=== PATIENT | female | born 1990 | race Caucasian/White ===

== ENCOUNTER 2017-02-22 18:40 | Outpatient (CLI) | payer BC ==
[~2017-02-22] VITALS: Ht 157.5 cm; Wt 83.0 kg
[2017-02-22] MEDS ORDERED: PRENTAB26 PO (18:50)
[2017-02-22 18:52] VITALS: Ht 157.5 cm; Wt 83.0 kg
[2017-02-22 19:39] LABS: INR 0.9 (0.9-1.1); PROTHROMBIN TIME (PATIENT) 9.4 SECONDS (9.0-12.0)
[2017-02-22 19:43] LABS: HEMATOCRIT 37.8 % (37-47); MEAN CELL VOLUME 87.7 fL (80-100); MEAN CORPUSCULAR HGB CONC 33.1 g/dl (32-36); MEAN PLATELET VOLUME 11.7 fL (7.4-10.4); PLATELET COUNT 109 K/uL (130-400); RED BLOOD COUNT 4.31 M/uL (4.2-5.4); WHITE BLOOD COUNT 10.34 K/uL (4.8-10.8)
[2017-02-22 19:47] LABS: ALB/GLOB RATIO 0.7 (0.9-2); ALKALINE PHOSPHATASE 111 U/L (45-117); ALT/SGPT 25 U/L (12-78); AST/SGOT 25 U/L (15-37); BLOOD UREA NITROGEN 5 mg/dl (7-18); BUN/CREATININE RATIO 9.9 (10-20); CALCIUM 8.5 mg/dl (8.5-10.1); CARBON DIOXIDE 25 mmol/L (21-32); CHLORIDE 108 mmol/L (98-107); CREATININE 0.48 mg/dl (0.60-1.20); GLUCOSE 74 mg/dl (70-99); POTASSIUM 3.6 mmol/L (3.5-5.1); SODIUM 141 mmol/L (136-145)
[2017-02-22 20:01] LABS: URINE APPEARANCE CLEAR (CLEAR); URINE BILIRUBIN NEG (NEG); URINE COLOR YELLOW; URINE EPITHELIAL CELL AUTO >30 /lpf (0-5); URINE NITRITE NEG (NEG); URINE PH 7.5 (4.5-7.5); URINE SPECIFIC GRAVITY 1.011 (1.000-1.030); UROBILINOGEN NEG (NEG)
[2017-02-22 20:02] LABS: MANUAL MICROSCOPIC REQUIRED? NO; REVIEW REQ? YES
--- NOTE | 2017-02-25 14:16 | EDITING REQUIRED CODING QUERY ---
DIAGNOSIS NEEDED To promote full compliance with coding requirements relating to patient care, physician participation is requested in all cases of pad machine offbearer uncertainty. Please assist us with the question(s) below: Coding Question: The patient received care in labor and delivery on 02/22/17 as noted within the record. Please document the diagnosis that is being addressed by the medication/treatment. Provider Response: DIAGNOSIS: LOWER EXTREMITY EDEMA OF Thank you for your assistance, Isabela Jacobson - Human Capital Analyst
[2017-08-07] MEDS ORDERED: BCPILLS PO (15:08)
[2017-08-18] MEDS ORDERED: OXYC-57 PO (11:16)
== END 2017-02-22 20:40 | disposition home or self-care (01) ==
LOC: C.OPB 18:40 → C.LD 18:41 → C.OPB 20:40
PROVIDERS: ATTEND Obstetrics & Gynecology
DX: O26.893 Other specified pregnancy related conditions, third trimester (principal); R60.9 Edema, unspecified; Z3A.35 35 weeks gestation of pregnancy

== ENCOUNTER 2017-03-25 00:27 | Inpatient (IN) | payer BC ==
[~2017-03-25] VITALS: Ht 157.5 cm; Wt 92.0 kg
[~2017-03-25 00:27] MED LIST: PRENTAB26 PO
[2017-04-02] MEDS ORDERED: LACTATED RINGER'S 1000ML 1,000 ML IV PRN (08:08)
[2017-04-02] MEDS ORDERED: BUTORPHANOL TARTRATE 1 MG/ML VIAL IV PRN (08:15)
[2017-04-02] MEDS ORDERED: DINOPROSTONE 10 MG INSERT PV ONE (08:15)
--- NOTE | 2017-04-02 08:39 | HISTORY & PHYSICAL EXAMINATION ---
DATE OF ADMISSION: 04/02/2017 CHIEF COMPLAINT: Scheduled induction of labor for post dates. HISTORY OF PRESENT ILLNESS: The patient is a 26-year-old G1, P0 at 41 weeks and 1 day of gestation who is presenting today for scheduled induction of labor for post dates. She has no complaints, no contractions, leakage of fluid, or vaginal bleeding. She reports good movements. She denies headaches, change in her vision, nausea, vomiting, epigastric or right upper quadrant pain. Her has been uncomplicated except gestational thrombocytopenia. PAST MEDICAL HISTORY: No medical problems. PAST SURGICAL HISTORY: None. MEDICATIONS: vitamins. ALLERGIES: PENICILLIN CAUSES RASH. LATEX ALLERGIC CONTACT DERMATITIS. SOCIAL HISTORY: The patient denies smoking, alcohol or drug use. GYNECOLOGIC HISTORY: The patient denies any history of STDs including Chlamydia, gonorrhea, herpes. This is her first . LABS: Her blood type is O positive, antibody screen negative, rubella positive, RPR nonreactive, hepatitis B surface antigen negative, HIV negative, chlamydia and gonorrhea cultures were negative. Her H\T\H was 12/36, platelets 130,000. Urine culture was negative. One hour Glucola was 93 mg per deciliter. Repeat H\T\H was 12/36, platelets 119. GBS culture was negative on 02/24/2017 and repeat platelets were 119 on 03/12/2017. PHYSICAL EXAMINATION: GENERAL: The patient is alert, oriented x3, not in acute distress. VITAL SIGNS: Blood pressure is 135/91, temperature 98.6 fahrenheit, pulse 93, respirations 20. CARDIOVASCULAR SYSTEM: S1, S2, RRR. LUNGS: Clear to auscultation bilaterally. ABDOMEN: Soft, gravid, David 7-1/2 to 8 pounds. EXTREMITIES: Nontender, 1+ pretibial edema. PELVIC EXAMINATION: Her cervix is 1-2 cm dilated, 30% effaced, -3, vertex. heart rate 140s, category 1. [place] mild contractions every 7-8 minutes. ASSESSMENT AND PLAN: The patient is a 26-year-old G1, P0 at 41 weeks and 1 day gestation presenting for scheduled induction of labor for post dates. No medical problems. GBS negative, blood pressure is slightly elevated with 1+ proteinuria, no signs of severe preeclampsia. Plan is admit, monitor, start IV fluids, cervical ripening with Cervidil and blood work for liver enzymes, platelets, urine protein/ creatinine ratio The patient understands that inductions may take a day or two All questions were answered. MTDD
[2017-04-02 09:24] LABS: HEMATOCRIT 40.7 % (37-47); MEAN CELL VOLUME 88.5 fL (80-100); MEAN CORPUSCULAR HEMOGLOBIN 28.3 pg (25-34); MEAN CORPUSCULAR HGB CONC 31.9 g/dl (32-36); WHITE BLOOD COUNT 10.45 K/uL (4.8-10.8)
[2017-04-02 09:26] LABS: BLOOD UREA NITROGEN 9 mg/dl (7-18); BUN/CREATININE RATIO 13.8 (10-20); CALCIUM 8.4 mg/dl (8.5-10.1); CARBON DIOXIDE 23 mmol/L (21-32); CHLORIDE 108 mmol/L (98-107); CREATININE 0.65 mg/dl (0.60-1.20); GLUCOSE 83 mg/dl (70-99); POTASSIUM 4.1 mmol/L (3.5-5.1); SODIUM 140 mmol/L (136-145)
[2017-04-02 09:29] LABS: ALB/GLOB RATIO 0.7 (0.9-2); ALKALINE PHOSPHATASE 151 U/L (45-117); ALT/SGPT 19 U/L (12-78); AST/SGOT 17 U/L (15-37)
[2017-04-02 09:53] LABS: MEAN PLATELET VOLUME 12.7 fL (7.4-10.4); PLATELET COUNT 106 K/uL (130-400)
[2017-04-02 09:54] LABS: PLT ESTIMATE DECREASED
[2017-04-02 11:16] VITALS: Ht 157.5 cm; Wt 92.0 kg
[2017-04-02 11:33] LABS: URINE PROTIEN/CREAT RATIO 0.2 (0-0.2); URINE TOTAL PROTEIN 20.6 mg/dl (0-11.9)
[2017-04-02] MEDS: LACTATED RINGER'S 1000ML 1,000 ML IV SCH ×2 (13:28→19:57)
[2017-04-02] MEDS ORDERED: LACTATED RINGER'S 1000ML 500 ML IV PRN (22:27)
[2017-04-02] MEDS ORDERED: OXYTOCIN 30 UNITS/500ML NSS IV PRN (22:30)
[2017-04-02] MEDS ORDERED: FENTANYL 2MCG/ML ROPIV 1.25MG/ML 100ML BAG EPI ONE (23:16)
[2017-04-02] MEDS ORDERED: EpHEDrine SULFATE INJ 50 MG/ML AMP ONE (23:16)
[2017-04-02] MEDS ORDERED: BUPIVACAINE 0.25% 30 ML VIAL ONE (23:16)
[2017-04-02] MEDS ORDERED: FENTANYL CITRATE INJ 50 MCG/1 ML 2 ML VIAL ONE (23:16)
[2017-04-02 23:39] LABS: PLATELET COUNT 107 K/uL (130-400)
[2017-04-03] MEDS ORDERED: NALOXONE HCL INJ 1 MG in SODIUM CHLORIDE 0.9% 1000ML 1,000 ML IV PRN (00:37)
[2017-04-03] MEDS ORDERED: LACTATED RINGER'S 1000ML 500 ML IV PRN (00:37)
[2017-04-03] MEDS: LACTATED RINGER'S 1000ML 1,000 ML IV SCH (00:37)
[2017-04-03] MEDS ORDERED: NALOXONE HCL INJ 0.4 MG/1 ML VIAL/CARP IV PRN (00:45)
[2017-04-03] MEDS ORDERED: EpHEDrine SULFATE INJ 50 MG/ML AMP IV PRN (00:45)
[2017-04-03] MEDS ORDERED: FENTANYL 2MCG/ML ROPIV 1.25MG/ML 100ML BAG EPI PRN (00:45)
[2017-04-03] MEDS ORDERED: NALBUPHINE HCL INJ 10 MG/ML AMP IV PRN (00:45)
[2017-04-03] MEDS ORDERED: DiphenhydrAMINE HCL 50 MG/ML VIAL IV PRN (00:45)
[2017-04-03] MEDS ORDERED: ONDANSETRON INJ 2 MG/ML 2 ML VIAL IV PRN (00:45)
[2017-04-03] MEDS ORDERED: LACTATED RINGER'S 1000ML 1,000 ML IV SCH (06:09)
[2017-04-03] MEDS ORDERED: SUPERCREAM 0.870 % 15GM JAR EXT PRN (06:15)
[2017-04-03] MEDS ORDERED: HYDROCORTISONE ACETATE 25 MG SUPP PR PRN (06:15)
[2017-04-03] MEDS ORDERED: MEASLES, MUMPS & RUBELLA VIRUS VIAL SQ. ONE (06:15)
[2017-04-03] MEDS ORDERED: ACETAMINOPHEN 325 MG TAB PO PRN (06:15)
[2017-04-03] MEDS ORDERED: BENZOCAINE 20% AER SPR 82.5 GM CAN EXT PRN (06:15)
[2017-04-03] MEDS ORDERED: OXYCODONE/ACETAMINOPHEN 5-325 TAB PO PRN (06:15)
[2017-04-03] MEDS ORDERED: LANOLIN OINT EXT PRN ×2 (06:15)
[2017-04-03] MEDS ORDERED: OXYTOCIN 30 UNITS/500ML NSS IV PRN (06:15)
[2017-04-03] MEDS ORDERED: DIPHTHERIA/TETANUS/PERTUSSIS 0.5 ML SYR/VIAL IM. ONE (06:15)
--- NOTE | 2017-04-03 08:02 | Anesthesia Procedure Note ---
Anesthesia Epidural Removal Nt Date & Time Apr 03, 2017 at 08:01 Vital Signs Pain Intensity: 0.0 Notes Mental Status: alert / awake / arousable, participated in evaluation Nausea / Vomiting: adequately controlled Pain: adequately controlled Airway Patency, RR, SpO2: stable & adequate BP & HR: stable & adequate Hydration State: stable & adequate Neuraxial Anesthesia: was administered Anesthetic Complications: no major complications apparent, pt satisfied with anesthetic care Epidural: removed without complications, with tip intact
[2017-04-03] MEDS: DOCUSATE SODIUM 100 MG CAP PO SCH ×2 (08:09→19:44)
[2017-04-03] MEDS: PRENATAL VITAMIN TAB PO SCH (08:09)
[2017-04-03] MEDS: FERROUS SULFATE 325 MG TAB PO SCH (08:09)
--- NOTE | 2017-04-03 08:17 | DELIVERY SUMMARY ---
DATE OF OPERATION: 04/03/2017 DATE OF DELIVERY: 04/03/2017. TIME OF DELIVERY OF BABY: 0538 a.m. TIME OF DELIVERY OF PLACENTA: 0553 a.m. DETAILS OF DELIVERY: The patient was found to be fully dilated and desired to push. She pushed for about half an hour and delivered the head without difficulty. Shoulders were delivered with minimal traction. The baby was handed off to the mother where mouth and nose were suctioned and cord was clamped x2 and cut at 1 minute delay. It was 3-vessel cord. Cord blood was obtained. Placenta and vagina were checked for lacerations. There was a second degree left lower vaginal laceration and there was another second degree right lower vaginal laceration. They were repaired with 2-0 Vicryl in running locked fashion. Excellent hemostasis was achieved. The rest of the vagina and perineum were intact. Rectal exam was done and confirmed a good sphincter tone. Gloves were changed and placenta was found to be in the vagina and delivered spontaneously intact and complete. Uterus was explored and found to be empty. Lower segment was cleared of all clots and debris. Fundus was form. EBL was 300. Mom and baby tolerated the procedure well. Sponge, lap and instrument counts were correct x2. The baby was a viable female , Apgars 8/9, weight is 3141 gr. No complications happened and I was present during the whole procedure. I attest to the content of the Intraoperative Record and any orders documented therein. Any exceptions are noted below. MTDD
[2017-04-03] MEDS: IBUPROFEN 600 MG TAB PO PRN ×3 (11:38→21:12)
[2017-04-03 12:15] VITALS: BP 141/86; PULSE 90; TEMP 36.9; O2SAT 97
[2017-04-03 16:30] VITALS: BP 143/94; PULSE 90; TEMP 36.6; O2SAT 98
[2017-04-03 19:45] VITALS: BP 140/89; PULSE 92; TEMP 36.5; O2SAT 99
[2017-04-03 23:30] VITALS: BP 131/90; PULSE 93; TEMP 36.7; O2SAT 98
[2017-04-04] MEDS: IBUPROFEN 600 MG TAB PO PRN ×4 (01:38→19:32)
[2017-04-04 03:15] VITALS: BP 130/81; PULSE 90; TEMP 36.6; O2SAT 99
[2017-04-04 06:23] LABS: HEMATOCRIT 35.4 % (37-47)
--- NOTE | 2017-04-04 07:44 | OB/GYN Progress Note ---
RN ORTHOPEDIC Progress Note Date of Service Apr 04, 2017. Subjective conversation w/ patient, physical exam Ambulation: ambulating normally Voiding: no voiding problems Passing Gas: Yes Diet Tolerance: Regular Diet Lochia: Small Feeding Type: Bottle Feeding Objective Vital Signs Date Time Temp Pulse Resp B/P (MAP) Pulse Ox O2 Delivery O2 Flow Rate FiO2 04/04/17 03:15 36.6 90 18 130/81 (97) 99 Room Air 04/03/17 23:30 36.7 93 20 131/90 (104) 98 Room Air 04/03/17 23:30 98 Room Air 04/03/17 19:45 36.5 92 20 140/89 (106) 99 04/03/17 16:30 98 Room Air 04/03/17 16:30 36.6 90 18 143/94 (110) 98 Room Air 04/03/17 12:15 36.9 90 16 141/86 (104) 97 Room Air 04/03/17 09:35 Room Air Physical Exam General Appearance: WELL-APPEARING, NO APPARENT DISTRESS Abdomen: non tender, soft Fundus: Firm Extremities: non-tender, normal inspection, no pedal edema, no calf tenderness Laboratory Results Last 24 Hours Test 04/04/17 05:56 Hemoglobin 10.9 g/dL Hematocrit 35.4 % Assessment and Plan Post- Day Number: 1 Continue Routine Care: tent d/c in AM
[2017-04-04 08:07] VITALS: BP 116/79; PULSE 86; TEMP 36.4; O2SAT 100
[2017-04-04] MEDS: FERROUS SULFATE 325 MG TAB PO SCH (08:10)
[2017-04-04] MEDS: DOCUSATE SODIUM 100 MG CAP PO SCH ×2 (08:10→19:31)
[2017-04-04] MEDS: PRENATAL VITAMIN TAB PO SCH (08:10)
[2017-04-04 09:12] VITALS: O2SAT 100
[2017-04-04 15:00] VITALS: BP 145/89; PULSE 97; TEMP 36.9
[2017-04-04] MEDS ORDERED: BISACODYL 5 MG TABEC PO SCH (20:00)
[2017-04-04 23:00] VITALS: BP 128/84; PULSE 83; TEMP 36.7
[2017-04-05] MEDS: IBUPROFEN 600 MG TAB PO PRN ×2 (02:16→08:19)
[2017-04-05 06:49] LABS: HEMATOCRIT 34.9 % (37-47); MEAN CORPUSCULAR HEMOGLOBIN 29.6 pg (25-34); MEAN CORPUSCULAR HGB CONC 33.2 g/dl (32-36); MEAN PLATELET VOLUME 11.3 fL (7.4-10.4); PLATELET COUNT 95 K/uL (130-400); RED BLOOD COUNT 3.92 M/uL (4.2-5.4); WHITE BLOOD COUNT 13.48 K/uL (4.8-10.8)
[2017-04-05] MEDS ORDERED: BISACODYL 10 MG SUPP PR PRN (07:00)
[2017-04-05 07:45] VITALS: BP 124/81; PULSE 88; TEMP 36.8
[2017-04-05] MEDS: FERROUS SULFATE 325 MG TAB PO SCH (08:16)
[2017-04-05] MEDS: PRENATAL VITAMIN TAB PO SCH (08:16)
[2017-04-05] MEDS: DOCUSATE SODIUM 100 MG CAP PO SCH (08:16)
[2017-04-05] MEDS ORDERED: PRENTAB26 PO (08:46)
--- NOTE | 2017-04-05 08:46 | OB/GYN Progress Note ---
RECEIVING BARN CUSTODIAN Progress Note Date of Service: Apr 05, 2017. Patient is seen and examined. She feels well, no complaints. Ambulating without dizziness Voiding without difficulty Tolerating regular diet with out N&V Bleeding is minimal No fever/ chills/ CP/ SOB/ N&V/ Leg pain Bottle feeding without problems Date Time Temp Pulse Resp B/P (MAP) Pulse Ox O2 Delivery O2 Flow Rate FiO2 04/04/17 23:00 36.7 83 18 128/84 (99) Room Air 04/04/17 23:00 Room Air 04/04/17 15:00 36.9 97 18 145/89 (107) Room Air 04/04/17 15:00 Room Air 04/04/17 09:12 100 Room Air Last 24 Hours Test 04/05/17 06:05 White Blood Count 13.48 K/uL Red Blood Count 3.92 M/uL Hemoglobin 11.6 g/dL Hematocrit 34.9 % Mean Corpuscular Volume 89.0 fL Mean Corpuscular Hemoglobin 29.6 pg Mean Corpuscular Hemoglobin Concent 33.2 g/dl RDW Standard Deviation 50.8 fL RDW Coefficient of Variation 15.7 % Platelet Count 95 K/uL Mean Platelet Volume 11.3 fL PE: General: Alert, orientedx3, NAD Abd: soft, NT, fundus firm, below Umbilicus Perineum intact, Lochia rubra minimal Ext; NT, no edema AP: 26 yo s/p , ppd# 2 VSS Afebrile doing well Continue routine care All questions were answered Instructions were given when to call D/C home , f/u in office
--- NOTE | 2017-04-05 08:47 | Discharge Instructions ---
Discharge Instructions Date of Service Apr 05, 2017. Admission Reason for Admission: Induction Discharge Discharge Diagnosis / Problem: Discharge Goals Goal(s): Routine recovery after delivery Medications Continue Dispensed Medications: lansinoh Activity Recommendations Activity Limitations: as noted below Lifting Limitations: gradually increase as tolerated Exercise/Sports Limitations: until after follow-up appointment May Resume Sexual Activity: after follow-up appointment Driving or Machine Use: ACTIVITY RECOMMENDATIONS: * Gradual return to full activity over the next 2-3 weeks. * No lifting - nothing heavier than baby over the next 2-3 weeks. * Do not engage in vigorous exercise, sexual activity or sports until cleared by your physician. * Do not drive or operate any motorized equipment until cleared by your physician. * You may shower/bathe daily. BREAST CARE: If you are not breast feeding: * Wear a supportive bra 24 hours a day for one to two weeks. * Avoid stimulating your breasts and nipples as much as possible during the first few weeks after delivery. * When taking a shower, have the warm water hit your back, not breasts. * When your breasts feel full, apply ice packs. Usually three to four times a day helps ease the discomfort. * Take a mild pain medication (Tylenol/Motrin) when you are uncomfortable. If breast feeding: * Use breast milk to lubricate nipples. Lansinoh cream may be used for sore nipples. You do not need to remove cream prior to breast feeding. If using a different brand of cream, check the label for directions regarding removal of cream prior to nursing. * Wear a supportive bra. * If having problems with breasts or breast feeding, call a sales representative consultant or your health care provider. EPISIOTOMY CARE: After delivery, if you have an episiotomy (stitches), the following steps will ease discomfort and aid healing. * For the first 24 hours after delivery, place ice packs next to your episiotomy to help reduce swelling. * After the first 24 hour-period, sitz baths, either portable or in the tub, are suggested. A shower with a shower arm sprayed over the episiotomy may be comforting. * Rosa care should be done after each voiding and bowel movement. Squirt warm water from a plastic bottle over the perineum (region of the body between the anus and urinary opening) and pat dry. * Use Dermoplast to ease discomfort. Shake container. Vantage directly over the episiotomy. * Place a Tucks on a clean sanitary pad next to your episiotomy. OVER THE COUNTER MEDICATION: * For discomfort or pain, you may use Acetaminophen (Tylenol), Ibuprofen (Advil ), or Naproxen (Aleve) following the package directions. * For constipation you may use Colace following the package directions. SPECIAL CARE INSTRUCTIONS: When you are discharged from the hospital, it is important for you to follow the instructions listed below: * During the first week at home, you should be able to care for yourself and your baby. In addition, the usual light household activities are encouraged. * Limit your activities to the way you feel. Do not try to clean the house or move furniture. Be sensible. * If you actively engage in sports and have done so up until the time of your delivery, you may resume these activities as soon as you feel able. This may take up to one month or even longer. Use good judgment. * Continue to take your vitamins for at least six weeks after the of your baby. * Your diet need not be limited unless you were on a special diet before your delivery. Breast-feeding mothers need around 2500 calories per day and at least 64-80 ounces of fluid per day (8 to 10 glasses). * You should eat foods from the four major food groups. Crash diets or fad diets are to be avoided. Eating lean meats, fresh fruits and vegetables, low-fat dairy products, high fiber foods and a regular exercise program, will help you get back to your pre- weight without putting your health at risk. * Constipation is sometimes a problem after delivery. Take a mild laxative as needed. If breast feeding, Milk of Magnesia is acceptable to use. You may use a suppository or Fleets enema if no episiotomy. * A daily shower or tub bath is suggested. Be sure to thoroughly and gently dry the perineum. * A bloody vaginal discharge will usually continue until around four weeks post . A small amount of bleeding may continue for as long as six weeks. Vaginal discharge changes from the bright red bleeding after delivery to pink then brownish and finally yellowish-pink before becoming white and disappearing. * Bleeding may increase with activity. Your first period may come in 4-8 weeks. If you are breast feeding, your period may be delayed even longer. * Blackey (sex) can begin whenever both you and your partner feel comfortable and do not have any form of genital infection. It is recommended that you wait until after your return appointment and discuss with your physician. If you have questions, please talk to your health care practitioner. A condom should be used to prevent infection and . * Foreplay, gentle intercourse and lubrication is very important the first several times to prevent pain. A water-based lubricant such as K-Y jelly or Astroglide may be used. * Tampons may be used six weeks after delivery. * Douching should be avoided for 6 weeks after delivery. * If you have RH negative blood and your baby is RH positive, you will receive RHOGAM by injection prior to discharge. The nurse will give you a card to keep with you that has the date and place that you received RHOGAM after delivery. * During your care, you had a Rubella screen done to check for the presence of rubella antibodies in your blood. If your test was negative, you will receive a Rubella vaccine prior to discharge. This vaccine may cause a fever, soreness at the injection site and flu-like symptoms. If these symptoms persist, notify your health care practitioner. is not advised for three months after a Rubella vaccine. There is a higher chance of having a baby with defects if conceived within three months of getting the vaccine. * If you were discharged 24 hours from delivery or before 48 hours: Visiting nurses will come to your home 48 hours after discharge to assess you and your baby. The visiting nurse will meet with you while you are in the hospital to arrange a time and get directions to your home. * Verbalizes understanding of car seat law as reviewed with patient nursing. * Car Seat hand-out given and reviewed with patient by nursing. * Shaken baby information reviewed with patient by nursing. Call you doctor if: * Heavy bleeding (saturating several pads an hour) or passing clots the size of your fist. * A fever >101 degrees F (38.3 degrees C) on two occasions four hours apart and/or chills. * Unusual pain in the pelvic or vaginal areas. * "Baby Blues" lasting longer than two weeks. If you have any questions or concerns, call your health care practitioner at . FOLLOW-UP VISIT: * Please call the office at to schedule a 6 week examination. It is important you keep this appointment. * It is important for you to make arrangements for either yearly or twice yearly check-ups thereafter. . Current Hospital Diet Patient's current hospital diet: Regular OB Diet Discharge Diet Recommended Diet: Regular Diet Pending Studies Studies pending at discharge: no Medical Emergencies . Who to Call and When: Medical Emergencies: If at any time you feel your situation is an emergency, please call 911 immediately. . Non-Emergent Contact Non-Emergency issues call your: Surgeon Call Non-Emergent contact if: temperature is above 100.5, your pain is not controlled, your pain is worsening . . "Provider Documentation" section prepared by Jeramy Chapman. . VTE Core Measure Inpt VTE Proph given/why not?: Treatment not indicated
[2017-04-05 11:10] VITALS: BP_DIAS 81; PULSE 88; TEMP 36.8
[2017-04-05] MEDS ORDERED: NYSTCRE11 TOP (11:16)
[2017-04-05] MEDS ORDERED: FLUCONAZOLE 50 MG TAB PO ONE (12:00)
[2017-08-07] MEDS ORDERED: BCPILLS PO (15:08)
[2017-08-18] MEDS ORDERED: OXYC-57 PO (11:16)
== END 2017-04-05 11:40 | disposition home or self-care (01) | DRG 775 ==
LOC: C.LD 04-02 07:53 → C.OBG 04-03 09:38
PROVIDERS: ADMIT Obstetrics & Gynecology; ATTEND Obstetrics & Gynecology
PROC: 0WQNXZZ Repair Female Perineum, External Approach (ICD-10-PCS; principal; 2017-04-02)
PROC: 10E0XZZ Delivery of Products of Conception, External Approach (ICD-10-PCS; principal; 2017-04-02)
DX: O48.1 Prolonged pregnancy (principal); Z3A.41 41 weeks gestation of pregnancy; Z37.0 Single live birth; O70.1 Second degree perineal laceration during delivery

== ENCOUNTER → 2017-07-21 | Outpatient (CLI) | payer BC ==
[~2017-07-21] MED LIST changes: +BCPILLS PO; +NYSTCRE11 TOP
--- NOTE | 2017-07-21 16:35 | DIAGNOSTIC IMAGING REPORT ---
ULTRASOUND OF THE PELVIS CLINICAL HISTORY: Pelvic pain. COMPARISON STUDY: Pelvic ultrasound dated 02/17/2009 TECHNIQUE: Real-time, grayscale, and color flow sonography of the pelvis is performed both transabdominally and endovaginally. Images are reviewed in the transverse and longitudinal planes. FINDINGS: Uterus: The uterus is normal in size and echotexture, measuring 9.2 x 3.6 x 5.8 cm. Endometrium: The endometrium is normal in appearance, and the endometrial stripe is normal in thickness measuring up to 0.4 cm. Ovaries: The ovaries are normal in size and morphology. The right ovary measures 3.1 x 2.3 x 3.0 cm and the left ovary measures 6.1 x 4.2 x 5.1 cm. A large cyst is located in the pelvic midline, likely arising from the left ovary. This measures 8.1 x 6.6 x 8.0 cm. There are several additional large follicles identified in the left ovary, one of which appears complex. The largest measures up to 3.5 cm. Normal Doppler waveforms are shown within both ovaries. Pelvis: There is no free fluid in the cul-de-sac. No concerning adnexal lesion is seen. IMPRESSION: 1. There is an 8.1 cm ovarian cyst in the pelvic midline, likely arising from the left ovary. Precautionary sonographic follow-up in 2-3 menstrual cycles is recommended to document resolution. 2. There is no sonographic evidence of ovarian torsion at the time of examination. 3. The uterus is normal as imaged. Electronically signed by: Mathew Hoff M.D. 07/21/2017 4:34 PM Dictated Date/Time: 07/21/2017 4:28 PM
[2017-07-21 17:16] LABS: BASO % 0.1 %; BASO ABS # 0.01 K/uL (0-0.2); COMPLETE YES; EOS % 0.1 %; HEMATOCRIT 41.3 % (37-47); IG% 0.1 %; LYMPH % 28.5 %; LYMPH ABS # 2.24 K/uL (1.2-3.4); MEAN CELL VOLUME 82.8 fL (80-100); MEAN CORPUSCULAR HEMOGLOBIN 26.3 pg (25-34); MEAN CORPUSCULAR HGB CONC 31.7 g/dl (32-36); MEAN PLATELET VOLUME 12.6 fL (7.4-10.4); MONO % 8.4 %; NEUT % 62.8 %; PLATELET COUNT 178 K/uL (130-400); RED BLOOD COUNT 4.99 M/uL (4.2-5.4); WHITE BLOOD COUNT 7.86 K/uL (4.8-10.8)
[2017-07-21 17:37] LABS: BLOOD UREA NITROGEN 9 mg/dl (7-18); BUN/CREATININE RATIO 16.2 (10-20); CALCIUM 9.5 mg/dl (8.5-10.1); CARBON DIOXIDE 26 mmol/L (21-32); CHLORIDE 105 mmol/L (98-107); CREATININE 0.58 mg/dl (0.60-1.20); GLUCOSE 80 mg/dl (70-99); POTASSIUM 3.4 mmol/L (3.5-5.1); SODIUM 138 mmol/L (136-145)
== END | disposition home or self-care (01) ==
LOC: C.ULTR 15:11
PROVIDERS: ATTEND Nurse Practitioner
DX: R10.2 Pelvic and perineal pain (principal); N83.202 Unspecified ovarian cyst, left side

== ENCOUNTER → 2017-08-18 | Day surgery (SDC) | payer BC ==
[2017-08-07 15:08] VITALS: Ht 160 cm; Wt 69.5 kg
[~2017-08-18] VITALS: Ht 160 cm; Wt 69.5 kg
[~2017-08-18] MED LIST changes: +ACETAMINOPHEN 325 MG TAB PO PRN; +ACETAMINOPHEN 650 MG SUPP PR PRN; +ATROPINE SULFATE 0.1 MG/ML 5ML SYR IV PRN; +BUPIVACAINE 0.5 % 5 MG/1 ML MPF 30ML VIAL ONE; +CHECK SCOPOLAMINE PATCH PLACEMENT SCH; +CLINDAMYCIN 600 MG/54 ML D5W IV SCH; +DEXAMETHASONE SOD INJ 4 MG/ML VIAL ONE; +EpHEDrine SULFATE INJ 50 MG/ML AMP IV PRN; +FENTANYL CITRATE INJ 50 MCG/1 ML 2 ML VIAL ONE; +GLYCOPYRROLATE INJ 0.2 MG/ML VIAL ONE; +HYDROmorphone INJ 2 MG/ML SYR/VIAL ONE; +IBUPROFEN 200 MG TAB PO PRN; +IBUPROFEN 600 MG TAB PO PRN; +KETOROLAC TROMETHAMINE 30 MG/ML VIAL IV. PRN; +KETOROLAC TROMETHAMINE 30 MG/ML VIAL ONE; +LACTATED RINGER'S 1000ML 1,000 ML IV SCH; +LIDOCAINE HCL 2% 2 ML VIAL (20MG/ML) ONE; +METHYLENE BLUE 0.5% 10 ML VIAL ONE; +MIDAZOLAM HCL 1 MG/ML 2ML VIAL ONE; +MoRPHine SULFATE 2 MG/ML CARP IV PRN; +NEOSTIGMINE METHYLSULFATE 5 MG/5 ML SYR ONE; +NURSING VERBAL MED ORDER ONE; -NYSTCRE11 TOP; +ONDANSETRON INJ 2 MG/ML 2 ML VIAL IV PRN; +ONDANSETRON INJ 2 MG/ML 2 ML VIAL ONE; +OXYC-57 PO; +OXYCODONE/ACETAMINOPHEN 5-325 TAB PO PRN; +PHENYLEPHRINE 100MCG/ML 5ML SYR IV PRN; -PRENTAB26 PO; +PROMETHAZINE HCL INJ 12.5 MG in SODIUM CHLORIDE 0.9% 50ML 50 ML IV SCH; +PROPOFOL IV EMULSION 10 MG/ML 20 ML VIAL IV ONE; +ROCURONIUM BROMIDE 10 MG/ML 5 ML VIAL IV ONE; +SCOPOLAMINE 1.5 MG TDSY TD ONE; +SILVER NITR/POTASSIUM NITRATE 10 APPLICATOR PACK ONE; +SODIUM CHLORIDE 0.9% INJ 10 ML VIAL ONE; +TISSEEL FIBRIN SEALANT 10ML TOP ONE
[2017-08-18 08:21] LABS: BASO % 0.3 %; BASO ABS # 0.02 K/uL (0-0.2); EOS % 0.8 %; HEMATOCRIT 40.2 % (37-47); IG% 0.1 %; LYMPH % 32.1 %; LYMPH ABS # 2.35 K/uL (1.2-3.4); MEAN CELL VOLUME 78.1 fL (80-100); MEAN PLATELET VOLUME 11.5 fL (7.4-10.4); MONO % 8.5 %; NEUT % 58.2 %; PLATELET COUNT 163 K/uL (130-400); RED BLOOD COUNT 5.15 M/uL (4.2-5.4); WHITE BLOOD COUNT 7.31 K/uL (4.8-10.8)
[2017-08-18 08:37] VITALS: BP 153/75; PULSE 120; TEMP 36.8; O2SAT 99
--- NOTE | 2017-08-18 08:54 | History & Physical Bridge Note ---
H&P Re-Evaluation Bridge Note: I have examined the patient, reviewed the History & Physical and in the interval since the performance of the History & Physical I have noted the following changes of clinical significance: No changes noted
[2017-08-18 09:28] LABS: COMPLETE YES; MEAN CORPUSCULAR HGB CONC 33.3 g/dl (32-36)
--- NOTE | 2017-08-18 11:14 | [facility] Post Operative Brief Note ---
Immediate Operative Summary Operative Date Aug 18, 2017. Pre-Operative Diagnosis Female pelvic pain, 13cm pelvic mass, 5 cm pelvic mass Post-Operative Diagnosis Female pelvic pain, 13 cm Left ovarian cyst (likely endometrioma), Stage 4 Endometriosis Procedure(s) Performed Diagnostic Laparoscopy, Lysis of Adhesions, Left ovarian cystectomy Dianei Surgeon Dr. Omayra Anna Planner Chief Surgeon(s) Dr. Sindy Almaraz Estimated Blood Loss 25 mL Findings On entering the abdomen, there was a large cystic mass adhesed to the right pelvic side wall with omental adhesions to it. The tip of the appendix was also adhesed to it. After dissection, it was found that this cyst was originating from the LEFT ovary, adherent to the posterior uterus and over to the right sidewall. The right ovary was adhesed to the ovarian fossa and was freed. The right tube and left tubes were normal. The left ovary was adhesed to the left pelvic sidewall and partially freed. There is stage 4 eosis that is likely obliterating the culdesac. the cyst was ruptured during the procedure with the release of clear/old blood tinged fluid. Fluids (cc crystalloids) 2500cc Specimens Permanent specimens A: Left ovarian cyst Drains none Anesthesia gett Complication(s) None Disposition Recovery Room / PACU
--- NOTE | 2017-08-18 11:17 | Discharge Instructions ---
Discharge Instructions Date of Service Aug 18, 2017. Visit Reason for Visit: Cyst Of Left Ovary Discharge Discharge Diagnosis / Problem: s/p laproscopy, removal of left ovarian cyst, lysis of adhesions. Discharge Goals Goal(s): Specific goals Activity Recommendations Activity Limitations: per Instructions/Follow-up section Anesthesia . Post Anesthesia Instructions: If you have had General Anesthesia or IV Sedation: * Do not drive today. * Resume driving when surgeon permits. * Do not make important decisions or sign legal documents today. * Call surgeon for: 1. Temperature elevations greater than 101 degrees F. 2. Uncontrollable pain. 3. Excessive bleeding. 4. Persistent nausea and vomiting. 5. Medication intolerance (nausea, vomiting or rash). * For nausea and vomiting use only clear liquids such as: tea, soda, bouillon until nausea subsides, then gradually increase diet as tolerated. * If you have any concerns or questions, call your surgeon's office. If physician is unavailable and it is an emergency, call 911 or go to the nearest emergency room. . Instructions / Follow-Up Instructions / Follow-Up ACTIVITY RECOMMENDATIONS: * Rest the first 2-3 days. You should be back to your normal activity levels by day 3. * No heavy lifting for 2 weeks. * No intercourse, tampons or douching for 1-2 weeks. * You may shower the next day. * Do not drive anytime that you are taking narcotic pain medicines. RETURN TO SCHOOL/WORK: * May return to school or work after 2-3 days. DIET: Nausea may occur in the immediate post-operative period. If so, take clear liquids such as tea, bouillon, apple juice until all nausea has subsided, then resume usual diet. MEDICATIONS: Resume previous medications unless instructed otherwise by your surgeon. Ibuprofen 200mg 2-3 tablets every 4-6 hours as needed -- OR -- Aleve 2 tablets every 8-12 hours as needed for post-operative discomfort Medications are over the counter. Tylenol may be used if above medications are contraindicated or not preferred. Medication should be taken with food or milk. Do not take on an empty stomach. SPECIAL CARE INSTRUCTIONS: * Check temperature twice daily for one week. report any elevation over 101 degrees. * You may experience some vagina spotting and/or bleeding. This is normal for 1 -2 weeks and should not be heavier than a normal period. If it is unusual in amount, call your physician. * Post-operative discomfort may consist of a sore throat, a "bloated" feeling and pain in the shoulders. these are normal symptoms, which usually only last for 2-3 days. * Remove band-aids tomorrow and shower. There is no need to replace band-aids unless there is drainage or discomfort. FOLLOW UP VISIT: Call your doctor's office for a post-operative 2 week visit if not already scheduled. Diet Recommendations Recommended Home Diet: no limitations, resume previous diet Procedures Procedures Performed: Diagnostic Laparoscopy, Lysis of Adhesions, Left ovarian cystectomy DaVinci Pending Studies Studies pending at discharge: no Medical Emergencies . Who to Call and When: Medical Emergencies: If at any time you feel your situation is an emergency, please call 911 immediately. . Non-Emergent Contact Non-Emergency issues call your: Medical Cash Poster . . "Provider Documentation" section prepared by Omayra Anna. . [place] Drug Monitoring Program Search Results: patient reviewed within database, no issues identified
[2017-08-18] MEDS: HYDROmorphone INJ 2 MG/ML SYR/VIAL IV PRN ×2 (11:25→11:31)
--- NOTE | 2017-08-18 11:58 | Anesthesiology Progress Note ---
Anesthesia Post Op Note Date & Time Aug 18, 2017 at 11:58 Vital Signs Pain Intensity: 3 Vital Signs Past 12 Hours Date Time Temp Pulse Resp B/P (MAP) Pulse Ox O2 Delivery O2 Flow Rate FiO2 08/18/17 11:50 36.5 99 12 129/74 94 Room Air 08/18/17 11:40 36.5 99 12 125/74 96 Room Air 08/18/17 11:30 95 12 123/66 100 Oxymask 10 08/18/17 11:20 107 12 130/67 98 Oxymask 10 08/18/17 11:10 36.4 100 12 126/75 100 Oxymask 10 08/18/17 08:37 36.8 120 18 153/75 (101) 99 Room Air Notes Mental Status: alert / awake / arousable, participated in evaluation Pt Amnestic to Procedure: Yes Nausea / Vomiting: adequately controlled Pain: adequately controlled Airway Patency, RR, SpO2: stable & adequate BP & HR: stable & adequate Hydration State: stable & adequate Anesthetic Complications: no major complications apparent
--- NOTE | 2017-08-18 12:41 | OPERATIVE REPORT ---
DATE OF OPERATION: 08/18/2017 PREOPERATIVE DIAGNOSES: 1. Pelvic pain. 2. 13 cm complex cystic mass emanating from ovary, source unknown. 3. 5 cm left adnexal mass. POSTOPERATIVE DIAGNOSES: 1. Female pelvic pain. 2. 13 cm complex cystic mass, likely endometrioma, emanating from the left ovary. 3. Stage IV endometriosis. PROCEDURES: 1. Diagnostic laparoscopy. 2. Left ovarian cystectomy. 3. Lysis of adhesions. SURGEON: Dr. Anna. SALES REPRESENTATIVES: Dr. Sindy Almaraz. ANESTHESIA: General per endotracheal tube. ESTIMATED BLOOD LOSS: 25 mL FLUIDS: 2500 mL URINE OUTPUT: Approximately 25 mL of very concentrated urine in the Sanchez catheter at the end of the procedure. INDICATION: The patient is a 26-year-old 1, para 0, who is less than 6 months , who presented to me after having had an episode of pelvic pain, finding a large 8 cm mass. The patient was first seen by my partner Dr. Sindy Vizcaino and referred to me. By the time she was referred to me, the mass was almost 13 cm in size. We were unsure from which ovary it was emanating from. It was complex and multiseptated. Additionally, there was a 4.8 cm complex left ovarian mass noted. FINDINGS: On entering the abdomen via laparoscopy, there was noted to be a large pelvic mass that was adherent to the right pelvic sidewall. Additionally, omentum was also adhered to this. During the course of lysis of adhesions, the cyst was ruptured to release clear/old blood-tinged fluid. After the cyst was deflated and it was dissected away from the right pelvic sidewall, it was found to be actually emanating exophytic leaf from the left ovary. The right ovary itself did not have any cystic lesions, it actually appeared somewhat normal other than the fact that it was adhesed to the right pelvic sidewall. The left ovary other than this large mass was essentially normal and it was adherent to the left pelvic sidewall. Both tubes were normal, not dilated and not adhesed to any structures. The tip of the appendix was adhered to the cystic structure. COMPLICATIONS: None. DRAINS: None. DISPOSITION: To recovery room in stable condition. PROCEDURE IN DETAIL: The patient was taken to the operating room where she was identified verbally and by bracelet. She was placed in dorsal supine position where general anesthesia was induced without difficulty. She was then placed in dorsal lithotomy position in [facility]. Her arms were carefully prepped, tucked and padded at her sides. Her chest was padded and restrained. The head turbine operator was placed. The patient was prepped and draped in normal sterile fashion. A timeout was held identifying correct patient, procedure and positioning. Speculum was placed in the vagina. The anterior lip of the cervix was grasped with a single tooth tenaculum. The Par8o uterine manipulator was placed into the cervix to serve as means of manipulation. A Sanchez catheter was placed. Gloves were then changed. Attention was then turned to the abdomen where a supraumbilical incision was made approximately 2 fingerbreadths above the umbilicus. The Veress needle was placed through this, opening pressure of 4 mmHg, and the abdomen was insufflated with 3 liters of carbon dioxide gas. Then, using an 11 mm optical trocar, we entered the abdomen and the patient was placed into Trendelenburg position. The cystic mass was noted immediately. Two 8 mm trocars were then placed under direct visualization. The decision was made to begin with da Anurag to see if we could lyse this mass away from the right pelvic sidewall. The da Anurag surgical scheduler device was attached to the procedure, hot kellie were placed in the right-handed port and a [place] forceps in the left-handed port. Then, using gentle traction and countertraction, the cystic mass was carefully pulled away from the sidewall. Unfortunately, during the course of dissecting this away, the cyst was ruptured, it released clear/old blood-tinged fluid. It was no blood clot and it was not chocolate fluid. We continued to use traction and countertraction to pull the cyst away from the pelvic sidewall. When the cyst was fully pulled away from the pelvic sidewall and dissected off the back of the uterus, it was actually found to be emanating exophytically from the left ovary. It was decided we would just excise the cyst from the left ovary and this was done. An 11 mm left upper quadrant trocar was then placed under direct visualization by Dr. Vizcaino. An EndoCatch bag was placed through this and the cyst wall was placed through this and removed. Attention was then returned to pelvis where copious irrigation was performed. There was stage IV endometriosis noted, although I was able to gently pry the right ovary from the right pelvic sidewall with gentle traction and countertraction and I was able to partially do the left. Both tubes were evaluated and noted to be free and not dilated. After placing Tisseel over the bleeding edges and the posterior cul-de-sac and the right pelvic sidewall, the procedure was terminated. All trocars were removed from the abdomen, the gas was released. A deep stitch closing the fascia on the left upper quadrant trocar site was placed and then all the incisions were closed with 4-0 Vicryl in a subcuticular fashion. All incisions were infiltrated with 0.5% Marcaine and each incision was treated with Dermabond. Attention was then turned to the perineum where the instruments were removed from the vagina. Some bleeding at the tenaculum site on the cervix was attended to with silver nitrate until hemostasis was assured. This ended the procedure. All sponge, lap and needle counts were correct x2. The patient tolerated the procedure well and was taken to the recovery room in stable condition. I attest to the content of the Intraoperative Record and any orders documented therein. Any exception s are noted below.
[2017-08-18 12:45] VITALS: BP 129/78; PULSE 115; TEMP 36.7; O2SAT 96
[2017-08-18 13:10] VITALS: BP 136/78; PULSE 112; O2SAT 97
[2017-08-18 13:45] VITALS: BP 141/75; PULSE 112; TEMP 36.7; O2SAT 97
[2017-08-18 14:14] VITALS: BP 132/78; PULSE 118; O2SAT 100
[2017-08-18 14:45] VITALS: BP 135/79; PULSE 112; O2SAT 99
== END | disposition home or self-care (01) ==
LOC: C.ACU 07:36
PROVIDERS: ATTEND Obstetrics & Gynecology
DX: N83.202 Unspecified ovarian cyst, left side (principal); K66.0 Peritoneal adhesions (postprocedural) (postinfection); N80.1 Endometriosis of ovary

== ENCOUNTER → 2018-06-08 | Outpatient (CLI) | payer BC ==
[~2018-06-08] MED LIST changes: -ACETAMINOPHEN 325 MG TAB PO PRN; -ACETAMINOPHEN 650 MG SUPP PR PRN; -ATROPINE SULFATE 0.1 MG/ML 5ML SYR IV PRN; -BUPIVACAINE 0.5 % 5 MG/1 ML MPF 30ML VIAL ONE; -CHECK SCOPOLAMINE PATCH PLACEMENT SCH; -CLINDAMYCIN 600 MG/54 ML D5W IV SCH; -DEXAMETHASONE SOD INJ 4 MG/ML VIAL ONE; -EpHEDrine SULFATE INJ 50 MG/ML AMP IV PRN; -FENTANYL CITRATE INJ 50 MCG/1 ML 2 ML VIAL ONE; -GLYCOPYRROLATE INJ 0.2 MG/ML VIAL ONE; -HYDROmorphone INJ 2 MG/ML SYR/VIAL ONE; -IBUPROFEN 200 MG TAB PO PRN; -IBUPROFEN 600 MG TAB PO PRN; -KETOROLAC TROMETHAMINE 30 MG/ML VIAL IV. PRN; -KETOROLAC TROMETHAMINE 30 MG/ML VIAL ONE; -LACTATED RINGER'S 1000ML 1,000 ML IV SCH; -LIDOCAINE HCL 2% 2 ML VIAL (20MG/ML) ONE; -METHYLENE BLUE 0.5% 10 ML VIAL ONE; -MIDAZOLAM HCL 1 MG/ML 2ML VIAL ONE; -MoRPHine SULFATE 2 MG/ML CARP IV PRN; -NEOSTIGMINE METHYLSULFATE 5 MG/5 ML SYR ONE; -NURSING VERBAL MED ORDER ONE; -ONDANSETRON INJ 2 MG/ML 2 ML VIAL IV PRN; -ONDANSETRON INJ 2 MG/ML 2 ML VIAL ONE; -OXYC-57 PO; -OXYCODONE/ACETAMINOPHEN 5-325 TAB PO PRN; -PHENYLEPHRINE 100MCG/ML 5ML SYR IV PRN; -PROMETHAZINE HCL INJ 12.5 MG in SODIUM CHLORIDE 0.9% 50ML 50 ML IV SCH; -PROPOFOL IV EMULSION 10 MG/ML 20 ML VIAL IV ONE; -ROCURONIUM BROMIDE 10 MG/ML 5 ML VIAL IV ONE; -SCOPOLAMINE 1.5 MG TDSY TD ONE; -SILVER NITR/POTASSIUM NITRATE 10 APPLICATOR PACK ONE; -SODIUM CHLORIDE 0.9% INJ 10 ML VIAL ONE; -TISSEEL FIBRIN SEALANT 10ML TOP ONE
== END | disposition home or self-care (01) ==
LOC: C.PAPS 18:47
PROVIDERS: ATTEND Obstetrics & Gynecology
DX: Z01.411 Encounter for gynecological examination (general) (routine) with abnormal findings (principal)

== ENCOUNTER 2023-03-18 07:51 | Inpatient (IN) ==
[2023-03-18] MEDS ORDERED: OXYTOCIN 30 UNITS/500 ML BAG IV PRN ×2 (08:40)
[2023-03-18] MEDS ORDERED: LIDOCAINE 1% LOCAL 20 ML VIAL INFIL PRN (08:40)
[2023-03-18 09:31] LABS: Hematocrit (blood only) 38.1 % (37.0-47.0); Hemoglobin 12.9 g/dl (12.0-16.0); Mean Corpuscular Hemoglobin 29.9 pg (25.0-34.0); Mean Corpuscular Hgb Conc 33.9 g/dL (32.0-36.0); Mean Corpuscular Volume 88.2 fL (80.0-100.0); Mean Platelet Volume 11.8 fL (9.4-12.4); Platelet Count 109 K/uL (130-400); RDW Coefficient of Variation 14.2 % (11.5-14.5); RDW Standard Deviation 45.4 fL (36.4-46.3); Red Blood Count 4.32 M/uL (4.20-5.40); White Blood Count 9.19 K/ul (4.8-10.8)
[2023-03-18] MEDS: LACTATED RINGER'S 1,000 ML IV PRN ×3 (10:51→20:32)
--- NOTE | 2023-03-18 14:34 | History & Physical Report ---
Date of Service March 18, 2023 Assessment & Plan (1) Encounter for supervision of normal in multigravida: Plan: Sanchez bulb and pitocin for cervical ripening. Patient agreeable. Routine admission labs/monitoring. Admission and Anticipated Discharge Date Admission Date: March 18, 2023 History of Present Illness Chief Complaint: IOL Primary Care Provider: ARIADNA Lomeli 32yo @ 40 0/7, elective induction of labor. Allergies Allergy/AdvReac Type Severity Reaction Status Date / Time amoxicillin Allergy Intermediate Hives Verified 03/17/23 14:54 miconazole Allergy Intermediate itching, Verified 03/17/23 14:54 burning, hives Penicillins Allergy Intermediate HIVES Verified 03/17/23 14:54 latex Allergy Mild itching Verified 03/17/23 14:54 Home Medications Medication Instructions Recorded Confirmed Type prenat.vits,yelitza,twz-[id number]-npfgv 1 tab PO DAILY 08/14/22 03/18/23 History Patient History Medical History Change in bowel habits GERD (gastroesophageal reflux disease) Heartburn History of chicken pox Hx of endometriosis surgically proven, left endometrioma, stage 4 Left sided abdominal pain Seizure x1 when in high school--unknown cause, no neurologist, no issues now Surgical History History of esophagogastroduodenoscopy (EGD) S/P colonoscopy S/P laparoscopy stage 4 eosis, 13 cm eoma Family History Grandfather (Maternal) Diabetes Other No family history of adverse response to anesthesia No pertinent family history Denies family history of Ovarian cancer Breast cancer Colorectal cancer Social History Smoking Status: Never smoker Second Hand Exposure: No; Do You Dip or Chew Tobacco: No; Hx Alcohol Use: No Hx Substance Use: No Preferred Language: Yemeni Communication Ability: Effective Visual Impairment: No Limitations Hearing Ability: Normal Front Load Trash Truck Driver Required: No Beliefs That Will Affect Care: None marital status: marital status details: Reji Pickett (30) [phone] Current Living Situation: Spouse Current Living Situation Comment: Lives with and 1 daughter, dogs current occupational status: employed current occupation: [employer] Other Information That Helps Us Care for You: No Feels Safe at Home: Yes Safety Concerns: Feels Safe At This Time Assistive Devices: None Review of Systems All systems reviewed & are unremarkable except as noted in HPI & below Physical Exam Physical Exam: FHT Cat 1 [place] Q 2 SVE 2/50/-3 Cephalic by US. Constitutional: WD/WN, vitals as above Respiratory: normal respiratory effort, lungs clear to auscultation no respiratory distress Cardiovascular: Rate/Rhythm: regular rate and regular rhythm Gastrointestinal (Abdomen): Inspection/Auscultation: abdomen normal to inspection Percussion/Palpation: abdomen soft; abdomen nontender Gravid. No s/s chorio or abruption. Skin: no rashes, warm and dry Psychiatric: A+Ox3, euthymic affect Results & Data Vital Signs (Past 12 Hours) Vital Signs Temp Pulse Resp BP 03/18/23 14:33 68 03/18/23 14:33 124/86 03/18/23 13:25 77 03/18/23 13:25 126/89 03/18/23 08:02 36.8 C 102 H 20 121/81 Coding Level of Care Code None Diagnoses Encounter for supervision of normal in multigravida Z34.80
--- NOTE | 2023-03-18 16:00 | Labor Progress Brief Note ---
Date of Service March 18, 2023 Subjective Notified by RN that patient has a latex allergy - we are currently using a latex montero bulb. I went to see the patient, she reports no reaction or itching. States the latex allergy came from irritation after condom use. No redness at site of montero on skin. I checked cervix - 50/-3, montero balloon was in vagina - this was drained and removed. I offered patient benadryl, however since she is not having reaction, declined. Let her know to please notify me director emergency if she develops any itching symptoms. FHT Cat 1 [place] Q 2-3 Will continue pitocin. She will let us know if/when she desires epidural. Assessment & Plan Admission and Anticipated Discharge Date Admission Date: March 18, 2023 Results & Data Vital Signs (Past 12 Hours) Vital Signs Temp Pulse Resp BP 03/18/23 15:42 79 03/18/23 15:42 123/84 03/18/23 14:33 20 03/18/23 14:33 36.8 C 20 03/18/23 14:33 68 03/18/23 14:33 124/86 03/18/23 13:25 77 03/18/23 13:25 126/89 03/18/23 08:02 36.8 C 102 H 20 121/81 Coding Level of Care Code None Diagnoses
--- NOTE | 2023-03-18 18:36 | Anesthesiology Consultation ---
Date of Service March 18, 2023 Assessment & Plan Chart Review Chart Review: Acceptable Risk for Surgery and Patient NOT seen in Pre Admission Testing Consults Requested none ASA ASA2 Proposed Anesthesia Anesthesia Type: Labor Epidural and CSE History Height/Weight Height: 5 ft 2 in Weight: 90.265 kg Allergies Allergy/AdvReac Type Severity Reaction Status Date / Time amoxicillin Allergy Intermediate Hives Verified 03/17/23 14:54 miconazole Allergy Intermediate itching, Verified 03/17/23 14:54 burning, hives Penicillins Allergy Intermediate HIVES Verified 03/17/23 14:54 latex Allergy Mild itching Verified 03/17/23 14:54 Medications Home Medications Medication Instructions Recorded Confirmed Last Taken prenat.vits,yelitza,kxd-ubon-ymqxc 1 tab PO DAILY 08/14/22 03/18/23 03/18/23 07:30 Active Medications Generic Name Dose Route Start Last Admin Trade Name Freq PRN Reason Stop Dose Admin Lactated Ringer's 1,000 mls @ 125 mls/hr 03/18/23 08:40 03/18/23 18:06 Lr IV 03/20/23 08:39 999 mls/hr .Q8H PRN Administration L&D Protocol Protocol Oxytocin 30 units in 500 mls @ 13 mls/hr 03/18/23 08:40 03/18/23 18:00 Pitocin IV 03/20/23 08:39 0.78 units/hr .Q24H PRN 13 mls/hr Labor Induction/Augmentation Titration Protocol 0.78 UNITS/HR Past Medical History Medical History Change in bowel habits GERD (gastroesophageal reflux disease) Heartburn History of chicken pox Hx of endometriosis surgically proven, left endometrioma, stage 4 Left sided abdominal pain Seizure x1 when in high school--unknown cause, no neurologist, no issues now morbid obesity Exercise / Class Metabolic Activity II 4-5 Yardwork/Stairs/Walk up hill Past Family History Family History Grandfather (Maternal) Diabetes Other No family history of adverse response to anesthesia No pertinent family history Denies family history of Ovarian cancer Breast cancer Colorectal cancer Past Surgical History Surgical History History of esophagogastroduodenoscopy (EGD) S/P colonoscopy S/P laparoscopy stage 4 eosis, 13 cm eoma Past Anesthesia History No Hx of Anesthesia Complications and No Family Hx of Anesthesia Complications History of PONV No Hx of PONV and No Hx of Motion Sickness Social History Smoking Status: Never smoker Do You Dip or Chew Tobacco: No Hx Alcohol Use: No Hx Substance Use: No substance use type: does not use Physical Exam Vital Signs Last Vital Signs Temp 36.8 C 03/18/23 14:33 Pulse 77 03/18/23 18:17 Resp 18 03/18/23 18:00 BP 128/83 03/18/23 18:17 Testing Laboratory Results 03/18/23 08:58 Blood Type O Positive 03/18/23 08:58 Antibody Screen NEGATIVE 03/18/23 08:58
[2023-03-18] MEDS ORDERED: BUPIVACAINE 0.25% PF 30 ML VIAL ONE (18:38)
[2023-03-18] MEDS ORDERED: ePHEDrine sulfate 50 MG/ML AMP ONE (18:38)
[2023-03-18] MEDS ORDERED: fentaNYL citrate PF 100 MCG/2 ML VIAL ONE (18:38)
[2023-03-18] MEDS ORDERED: SODIUM CHLORIDE 0.9% PF INJ 10 ML VIAL ONE (18:38)
[2023-03-18] MEDS ORDERED: LIDOCAINE 2%/EPINEPHRINE 1:200,000 20 ML PF ONE (18:38)
[2023-03-18] MEDS ORDERED: fentaNYL 2MCG/ML ROPIVACAINE 1.25MG/ML 100 ML BAG EPI ONE (18:39)
[2023-03-18] MEDS ORDERED: fentaNYL citrate PF 100 MCG/2 ML VIAL EPI PRN (19:15)
[2023-03-18] MEDS ORDERED: BUPIVACAINE 0.25% PF 30 ML VIAL EPI STA (19:15)
[2023-03-18] MEDS ORDERED: SODIUM CHLORIDE 0.9% PF INJ 10 ML VIAL EPI STA (19:15)
[2023-03-18] MEDS ORDERED: diphenhydrAMINE 50 MG/ML VIAL IV PRN (19:15)
[2023-03-18] MEDS ORDERED: LIDOCAINE 2% MPF LOCAL 5 ML VIAL EPI PRN (19:15)
[2023-03-18] MEDS ORDERED: ROPIVACAINE 0.5% PF 5 MG/ML 20 ML VIAL EPI PRN (19:15)
[2023-03-18] MEDS ORDERED: fentaNYL 2MCG/ML ROPIVACAINE 1.25MG/ML 100 ML BAG EPI PRN (19:15)
[2023-03-18] MEDS ORDERED: NALBUPHINE HCL INJ 10 MG/ML AMP IV PRN (19:15)
[2023-03-18] MEDS ORDERED: BUPIVACAINE 0.25% PF 30 ML VIAL EPI PRN (19:15)
[2023-03-18] MEDS ORDERED: ONDANSETRON INJ 2 MG/ML 2 ML VIAL IV PRN (19:15)
[2023-03-18] MEDS ORDERED: fentaNYL citrate PF 100 MCG/2 ML VIAL EPI STA (19:15)
[2023-03-18] MEDS ORDERED: SODIUM CHLORIDE 0.9% PF INJ 10 ML VIAL EPI PRN (19:15)
[2023-03-18] MEDS ORDERED: NALOXONE HCL 1 MG in SODIUM CHLORIDE 0.9% 1000ML 1,000 ML IV PRN (19:15)
[2023-03-18] MEDS ORDERED: LIDOCAINE 2%/EPINEPHRINE 1:200,000 20 ML PF EPI STA (19:15)
[2023-03-18] MEDS ORDERED: ePHEDrine sulfate 50 MG/ML AMP IV PRN (19:15)
[2023-03-18] MEDS ORDERED: NALOXONE HCL 0.4 MG/1 ML VIAL/CARP IV PRN (19:15)
[2023-03-18] MEDS ORDERED: PROMETHAZINE HCL 25 MG in SODIUM CHLORIDE 0.9% 50 ML IV PRN (19:15)
--- NOTE | 2023-03-18 20:08 | Labor Progress Brief Note ---
Date of Service March 18, 2023 Subjective Comfortable after epidural. FHT Cat 1 [place] Q 2 SVE 5-6/70/-2 AROM clear fluid Continue labor Assessment & Plan Admission and Anticipated Discharge Date Admission Date: March 18, 2023 Results & Data Vital Signs (Past 12 Hours) Vital Signs Temp Pulse Resp BP Pulse Ox 03/18/23 20:05 95 03/18/23 20:05 88 03/18/23 20:04 94 03/18/23 20:04 89 03/18/23 20:00 96 03/18/23 20:00 86 03/18/23 19:55 95 03/18/23 19:55 85 03/18/23 19:50 96 03/18/23 19:50 89 03/18/23 19:45 96 03/18/23 19:45 74 03/18/23 19:43 72 03/18/23 19:43 116/70 03/18/23 19:40 95 03/18/23 19:40 79 03/18/23 19:35 96 03/18/23 19:35 79 03/18/23 19:15 99 03/18/23 19:15 18 03/18/23 19:15 36.7 C 18 03/18/23 19:30 96 03/18/23 19:30 76 03/18/23 19:25 97 03/18/23 19:24 90 03/18/23 19:25 80 03/18/23 19:24 108/75 03/18/23 19:21 74 03/18/23 19:21 107/69 03/18/23 19:20 98 03/18/23 19:20 79 03/18/23 19:18 78 03/18/23 19:18 108/69 03/18/23 19:15 97 03/18/23 19:15 82 03/18/23 19:15 111/69 03/18/23 19:13 101 H 03/18/23 19:13 113/82 03/18/23 19:10 97 03/18/23 19:09 95 H 03/18/23 19:10 91 H 03/18/23 19:09 136/92 03/18/23 19:05 99 03/18/23 19:05 96 H 03/18/23 19:03 90 03/18/23 19:03 88 03/18/23 19:02 88 03/18/23 19:02 172/105 H 03/18/23 18:50 18 03/18/23 18:50 18 03/18/23 19:01 84 03/18/23 19:01 178/93 H 03/18/23 19:00 100 03/18/23 19:00 95 H 03/18/23 18:55 99 03/18/23 18:55 80 03/18/23 18:50 98 03/18/23 18:50 102 H 03/18/23 18:17 77 03/18/23 18:17 128/83 03/18/23 18:00 18 03/18/23 18:00 18 03/18/23 18:00 96 H 03/18/23 18:00 140/86 03/18/23 15:42 79 03/18/23 15:42 123/84 03/18/23 14:33 20 03/18/23 14:33 36.8 C 20 03/18/23 14:33 68 03/18/23 14:33 124/86 03/18/23 13:25 77 03/18/23 13:25 126/89 Coding Level of Care Code None Diagnoses
[2023-03-18] MEDS ORDERED: ACETAMINOPHEN 500 MG TAB PO PRN (20:21)
--- NOTE | 2023-03-18 23:50 | Delivery Summary ---
Vaginal Delivery Summary Date of Service March 18, 2023 Vaginal Delivery Summary [facility] Vaginal Delivery Summary: Pre-delivery diagnoses: 32yo @ 40 0/7, elective IOL Post-delivery diagnoses: same Procedure: spontaneous vaginal delivery Surgeon: Tamar Nuñez DO Complications: none Findings: Viable female . Apgars: 8/9. Weight pending, please see nursery records Estimated blood loss: 300ml Description of delivery: The patient had epidural anesthesia and progressed from 8cm to complete, quickly within a few moments per RN. I was called to delivery and I responded immediately and was entering the room as the baby delivered spontaneously into hands of RN from the cephalic presentation. The baby was placed on mother's abdomen and a spontaneous cry was heard. Delayed cord clamping was employed, and the cord was doubly clamped and cut. Cord blood was obtained. The placenta was delivered spontaneously intact with a 3-vessel cord. The uterus and vagina were swept of clots and debris. IV pitocin was given. The uterine fundus became firm, but lower uterine segment did not firm immediately - therefore bladder was drained and one dose of Hemabate was given. The uterus firmed and hemostasis was excellent. The cervix, vagina, and perineum were inspected and no lacerations were noted. Excellent hemostasis was observed. The mother and baby are recovering in stable and good condition in the room. Sponge and instrument counts were correct x 2. Tamar Nuñez DO [facility] Vaginal Delivery Charge Vaginal Delivery Codes: 20421 global code for the antepartum, delivery, and post- Delivery Type Details: [facility]
[2023-03-19] MEDS ORDERED: ACETAMINOPHEN 325 MG TAB PO PRN (00:05)
[2023-03-19] MEDS ORDERED: MEASLES, MUMPS & RUBELLA VIRUS VIAL SQ ONE (00:05)
[2023-03-19] MEDS ORDERED: HYDROCORTISONE ACETATE 25 MG SUPP PR PRN (00:05)
[2023-03-19] MEDS ORDERED: OXYTOCIN 30 UNITS/500 ML BAG IV PRN (00:05)
[2023-03-19] MEDS ORDERED: oxyCODONE/ACETAMINOPHEN 5mg/325mg TAB PO PRN (00:05)
[2023-03-19] MEDS ORDERED: BENZOCAINE 20% AER SPR 82.5 GM CAN EXT PRN (00:05)
[2023-03-19] MEDS ORDERED: DIPHTHERIA/TETANUS/PERTUSSIS Vaccine (Tdap, Age 7+yrs) 0.5mL SYR/VL IM ONE (00:05)
[2023-03-19] MEDS ORDERED: CARBOPROST TROMETHAMINE 250 MCG/ML AMPUL IM ONE (00:05)
[2023-03-19] MEDS: IBUPROFEN 600 MG TAB PO PRN ×4 (03:16→20:28)
--- NOTE | 2023-03-19 05:39 | Obstetrical Progress Note ---
Date of Service <Sherrie Bainalba - Last Filed: 03/19/23 06:47> March 19, 2023 Assessment & Plan <Sherrie Bainalba - Last Filed: 03/19/23 06:47> (1) care following vaginal delivery: Patient is PPD 1 s/p and doing well. - Eating well, voiding well, ambulating well - Vitals reviewed and within normal limits - Pain well controlled with analgesics - OOB, ambulation, diet progression as tolerated - Blood type: O+, GBS neg, rubella equivocal (MMR given) - Plan to discharge today or tomorrow per pt preference - After discharge, 6 week follow up with Dr. Nuñez <Tamar Nuñez, - Last Filed: 03/19/23 08:00> (1) care following vaginal delivery: Subjective <Sherrie Bainalba - Last Filed: 03/19/23 06:47> Patient is a 32 yo female who is now PPD #1 following spontaneous vaginal delivery at 40 0/7 weeks. Reports feeling well this morning. She denies abdominal cramping and 3/10 pain well managed on analgesics. Voiding without issue. Tolerating regular meals overnight and able to ambulate some. Persistent lochia with small clots passed this morning. Currently bottle feeding. Review of Systems Denies fever, chills, sweats. Denies SOB, difficulty breathing, chest pain, palpitations, and chest pressure. Denies breast pain. Denies dysuria. Denies headache or changes in vision. Physical Exam <Sherrie MaldonadoConstantino Farfan DO - Last Filed: 03/19/23 06:47> General: Alert and oriented. No acute distress. CV: Regular rate and rhythm. No murmurs. Respiratory: CTA bilaterally. No rhonchi, wheezes, or crackles. No increased work of breathing. Abdomen: Positive bowel sounds. Soft, nontender, non distended. Uterus: Fundus firm and palpable 2 cm below the umbilicus. Lower extremities: No LE edema. No deep calf pain. Results & Data <Sherrie MaldonadoConstantino Farfan DO - Last Filed: 03/19/23 06:47> Vital Signs (Past 12 Hours) Vital Signs Temp Pulse Pulse Resp BP BP Pulse Ox 03/19/23 03:35 36.9 C 89 18 128/86 97 03/19/23 02:34 36.8 C 18 99 03/19/23 00:10 18 03/18/23 23:50 36.9 C 18 03/19/23 02:34 77 123/75 03/19/23 01:54 84 138/88 03/19/23 01:39 83 138/89 03/19/23 01:24 83 136/88 03/19/23 01:09 85 133/89 03/19/23 00:54 78 131/85 03/19/23 00:39 86 138/84 03/19/23 00:24 86 137/85 03/19/23 00:09 86 129/84 03/18/23 23:53 90 03/18/23 23:53 119/74 03/18/23 23:43 100 H 03/18/23 23:43 202/92 H 03/18/23 23:39 105 H 03/18/23 23:39 159/99 H 03/18/23 23:30 95 03/18/23 23:30 138 H 03/18/23 23:28 102 H 03/18/23 23:28 156/89 H 03/18/23 23:27 94 03/18/23 23:27 88 03/18/23 23:25 95 03/18/23 23:25 91 H 03/18/23 23:21 94 03/18/23 23:21 79 03/18/23 23:20 95 03/18/23 23:20 81 03/18/23 23:14 94 03/18/23 23:15 95 03/18/23 23:14 90 03/18/23 23:15 87 03/18/23 23:10 95 03/18/23 23:10 80 03/18/23 23:05 95 03/18/23 23:05 84 03/18/23 23:00 18 03/18/23 23:00 18 03/18/23 23:00 96 03/18/23 23:00 80 03/18/23 22:57 78 03/18/23 22:57 131/86 03/18/23 22:55 96 03/18/23 22:55 82 03/18/23 22:50 97 03/18/23 22:50 79 03/18/23 22:45 98 03/18/23 22:45 86 03/18/23 22:30 18 03/18/23 22:30 18 03/18/23 22:43 75 03/18/23 22:43 135/88 03/18/23 22:40 98 03/18/23 22:40 81 03/18/23 22:35 99 03/18/23 22:35 79 03/18/23 22:30 99 03/18/23 22:30 88 03/18/23 22:28 91 H 03/18/23 22:28 130/83 03/18/23 22:25 100 03/18/23 22:25 81 03/18/23 22:20 99 03/18/23 22:20 97 H 03/18/23 22:15 100 03/18/23 22:15 98 H 03/18/23 22:10 100 03/18/23 22:10 94 H 03/18/23 22:00 18 03/18/23 22:00 18 03/18/23 22:05 99 03/18/23 22:05 78 03/18/23 22:00 98 03/18/23 22:00 77 03/18/23 21:58 77 03/18/23 21:58 109/69 03/18/23 21:55 99 03/18/23 21:55 77 03/18/23 21:50 99 03/18/23 21:50 71 03/18/23 21:45 99 03/18/23 21:45 74 03/18/23 21:44 76 03/18/23 21:44 103/67 03/18/23 21:40 99 03/18/23 21:40 82 03/18/23 21:30 18 03/18/23 21:30 36.9 C 18 03/18/23 21:35 100 03/18/23 21:35 80 03/18/23 21:30 100 03/18/23 21:30 76 03/18/23 21:29 74 03/18/23 21:29 109/67 03/18/23 21:25 99 03/18/23 21:25 75 03/18/23 21:20 100 03/18/23 21:20 80 03/18/23 21:15 99 03/18/23 21:15 78 03/18/23 21:12 82 03/18/23 21:12 107/59 L 03/18/23 21:10 96 03/18/23 21:10 72 03/18/23 21:05 98 03/18/23 21:05 71 03/18/23 21:00 18 03/18/23 21:00 18 03/18/23 21:00 98 03/18/23 21:00 73 03/18/23 20:57 86 03/18/23 20:57 100/57 L 03/18/23 20:55 99 03/18/23 20:55 74 03/18/23 20:50 100 03/18/23 20:50 79 03/18/23 20:45 100 03/18/23 20:45 72 03/18/23 20:30 18 03/18/23 20:30 18 03/18/23 20:43 73 03/18/23 20:43 106/65 03/18/23 20:40 99 03/18/23 20:40 76 03/18/23 20:35 100 03/18/23 20:35 94 H 03/18/23 20:30 99 03/18/23 20:30 83 03/18/23 20:25 98 03/18/23 20:25 84 03/18/23 20:20 97 03/18/23 20:20 75 03/18/23 20:15 97 03/18/23 20:15 83 03/18/23 20:00 18 03/18/23 20:00 36.7 C 18 03/18/23 20:12 85 03/18/23 20:12 97/60 L 03/18/23 20:10 95 03/18/23 20:10 83 03/18/23 20:08 82 03/18/23 20:08 101/61 03/18/23 20:05 95 03/18/23 20:05 88 03/18/23 20:04 94 03/18/23 20:04 89 03/18/23 20:00 96 03/18/23 20:00 86 03/18/23 19:55 95 03/18/23 19:55 85 03/18/23 19:50 96 03/18/23 19:50 89 03/18/23 19:45 96 03/18/23 19:45 74 03/18/23 19:43 72 03/18/23 19:43 116/70 03/18/23 19:40 95 03/18/23 19:40 79 03/18/23 19:35 96 03/18/23 19:35 79 03/18/23 19:15 99 03/18/23 19:15 18 03/18/23 19:15 36.7 C 18 03/18/23 19:30 96 03/18/23 19:30 76 03/18/23 19:25 97 03/18/23 19:24 90 03/18/23 19:25 80 03/18/23 19:24 108/75 03/18/23 19:21 74 03/18/23 19:21 107/69 03/18/23 19:20 98 03/18/23 19:20 79 03/18/23 19:18 78 03/18/23 19:18 108/69 03/18/23 19:15 97 03/18/23 19:15 82 03/18/23 19:15 111/69 03/18/23 19:13 101 H 03/18/23 19:13 113/82 03/18/23 19:10 97 03/18/23 19:09 95 H 03/18/23 19:10 91 H 03/18/23 19:09 136/92 03/18/23 19:05 99 03/18/23 19:05 96 H 03/18/23 19:03 90 03/18/23 19:03 88 03/18/23 19:02 88 03/18/23 19:02 172/105 H 03/18/23 18:50 18 03/18/23 18:50 18 03/18/23 19:01 84 03/18/23 19:01 178/93 H 03/18/23 19:00 100 03/18/23 19:00 95 H 03/18/23 18:55 99 03/18/23 18:55 80 03/18/23 18:50 98 03/18/23 18:50 102 H 03/18/23 18:17 77 03/18/23 18:17 128/83 03/18/23 18:00 18 03/18/23 18:00 18 03/18/23 18:00 96 H 03/18/23 18:00 140/86 O2 Del Method 03/19/23 03:35 Room Air 03/19/23 02:34 03/19/23 00:10 03/18/23 23:50 03/19/23 02:34 03/19/23 01:54 03/19/23 01:39 03/19/23 01:24 03/19/23 01:09 03/19/23 00:54 03/19/23 00:39 03/19/23 00:24 03/19/23 00:09 03/18/23 23:53 03/18/23 23:53 03/18/23 23:43 03/18/23 23:43 03/18/23 23:39 03/18/23 23:39 03/18/23 23:30 03/18/23 23:30 03/18/23 23:28 03/18/23 23:28 03/18/23 23:27 03/18/23 23:27 03/18/23 23:25 03/18/23 23:25 03/18/23 23:21 03/18/23 23:21 03/18/23 23:20 03/18/23 23:20 03/18/23 23:14 03/18/23 23:15 03/18/23 23:14 03/18/23 23:15 03/18/23 23:10 03/18/23 23:10 03/18/23 23:05 03/18/23 23:05 03/18/23 23:00 03/18/23 23:00 03/18/23 23:00 03/18/23 23:00 03/18/23 22:57 03/18/23 22:57 03/18/23 22:55 03/18/23 22:55 03/18/23 22:50 03/18/23 22:50 03/18/23 22:45 03/18/23 22:45 03/18/23 22:30 03/18/23 22:30 03/18/23 22:43 03/18/23 22:43 03/18/23 22:40 03/18/23 22:40 03/18/23 22:35 03/18/23 22:35 03/18/23 22:30 03/18/23 22:30 03/18/23 22:28 03/18/23 22:28 03/18/23 22:25 03/18/23 22:25 03/18/23 22:20 03/18/23 22:20 03/18/23 22:15 03/18/23 22:15 03/18/23 22:10 03/18/23 22:10 03/18/23 22:00 03/18/23 22:00 03/18/23 22:05 03/18/23 22:05 03/18/23 22:00 03/18/23 22:00 03/18/23 21:58 03/18/23 21:58 03/18/23 21:55 03/18/23 21:55 03/18/23 21:50 03/18/23 21:50 03/18/23 21:45 03/18/23 21:45 03/18/23 21:44 03/18/23 21:44 03/18/23 21:40 03/18/23 21:40 03/18/23 21:30 03/18/23 21:30 03/18/23 21:35 03/18/23 21:35 03/18/23 21:30 03/18/23 21:30 03/18/23 21:29 03/18/23 21:29 03/18/23 21:25 03/18/23 21:25 03/18/23 21:20 03/18/23 21:20 03/18/23 21:15 03/18/23 21:15 03/18/23 21:12 03/18/23 21:12 03/18/23 21:10 03/18/23 21:10 03/18/23 21:05 03/18/23 21:05 03/18/23 21:00 03/18/23 21:00 03/18/23 21:00 03/18/23 21:00 03/18/23 20:57 03/18/23 20:57 03/18/23 20:55 03/18/23 20:55 03/18/23 20:50 03/18/23 20:50 03/18/23 20:45 03/18/23 20:45 03/18/23 20:30 03/18/23 20:30 03/18/23 20:43 03/18/23 20:43 03/18/23 20:40 03/18/23 20:40 03/18/23 20:35 03/18/23 20:35 03/18/23 20:30 03/18/23 20:30 03/18/23 20:25 03/18/23 20:25 03/18/23 20:20 03/18/23 20:20 03/18/23 20:15 03/18/23 20:15 03/18/23 20:00 03/18/23 20:00 03/18/23 20:12 03/18/23 20:12 03/18/23 20:10 03/18/23 20:10 03/18/23 20:08 03/18/23 20:08 03/18/23 20:05 03/18/23 20:05 03/18/23 20:04 03/18/23 20:04 03/18/23 20:00 03/18/23 20:00 03/18/23 19:55 03/18/23 19:55 03/18/23 19:50 03/18/23 19:50 03/18/23 19:45 03/18/23 19:45 03/18/23 19:43 03/18/23 19:43 03/18/23 19:40 03/18/23 19:40 03/18/23 19:35 03/18/23 19:35 03/18/23 19:15 03/18/23 19:15 03/18/23 19:15 03/18/23 19:30 03/18/23 19:30 03/18/23 19:25 03/18/23 19:24 03/18/23 19:25 03/18/23 19:24 03/18/23 19:21 03/18/23 19:21 03/18/23 19:20 03/18/23 19:20 03/18/23 19:18 03/18/23 19:18 03/18/23 19:15 03/18/23 19:15 03/18/23 19:15 03/18/23 19:13 03/18/23 19:13 03/18/23 19:10 03/18/23 19:09 03/18/23 19:10 03/18/23 19:09 03/18/23 19:05 03/18/23 19:05 03/18/23 19:03 03/18/23 19:03 03/18/23 19:02 03/18/23 19:02 03/18/23 18:50 03/18/23 18:50 03/18/23 19:01 03/18/23 19:01 03/18/23 19:00 03/18/23 19:00 03/18/23 18:55 03/18/23 18:55 03/18/23 18:50 03/18/23 18:50 03/18/23 18:17 03/18/23 18:17 03/18/23 18:00 03/18/23 18:00 03/18/23 18:00 03/18/23 18:00 <Tamar Nuñez DO - Last Filed: 03/19/23 08:00> Co-Signing Physician Notes Resident Physician Supervision Note: I interviewed and examined the patient. Discussed with Dr. Farfan and agree with findings and plan as documented in the note. Any exceptions or clarifications are listed here: PPD1 doing well. Low platelets on admission (109), but BP wnl. Will check CMP this morning with labs. Anticipate DC home tomorrow. Documented By: Tamar Nuñez DO Resident Activity Tracking <Sherrie Farfan, - Last Filed: 03/19/23 06:47> Resident Involvement: Resident Care Provided Care Provided: OB Delivery
--- NOTE | 2023-03-19 07:28 | Anesthesia Procedure Note ---
Date of Service March 19, 2023 Anesthesia Post Epidural Note Vital Signs Vital Signs: Temp Pulse Resp BP Pulse Ox O2 Del Method 36.9 C 89 18 128/86 97 Room Air 03/19/23 03:35 03/19/23 03:35 03/19/23 03:35 03/19/23 03:35 03/19/23 03:35 03/19/23 03:35 Pain Intensity Abdomen: Pain Intensity: 0 Notes Mental Status: alert / awake / arousable Nausea / Vomiting: adequately controlled Pain: adequately controlled Airway Patency, RR, SpO2: stable & adequate BP & HR: stable & adequate Hydration State: stable & adequate Neuraxial Anesthesia: was administered and sensory block is resolving Anesthetic Complications: no major complications apparent and Pt Satisfied with anesthetic care Epidural: Removed without complications and With tip intact
[2023-03-19 07:52] LABS: Hematocrit (blood only) 37.5 % (37.0-47.0); Hemoglobin 12.4 g/dl (12.0-16.0); Mean Corpuscular Hgb Conc 33.1 g/dL (32.0-36.0); Mean Corpuscular Volume 90.8 fL (80.0-100.0); Mean Platelet Volume 12.4 fL (9.4-12.4); Platelet Count 105 K/uL (130-400); RDW Coefficient of Variation 14.3 % (11.5-14.5); RDW Standard Deviation 47.1 fL (36.4-46.3); Red Blood Count 4.13 M/uL (4.20-5.40); White Blood Count 16.93 K/ul (4.8-10.8)
[2023-03-19] MEDS: PRENATAL VITAMIN 1 TAB PO SCH (07:55)
[2023-03-19] MEDS: DOCUSATE SODIUM 100 MG CAP PO SCH ×2 (07:56→20:27)
[2023-03-19 08:04] LABS: Albumin Globulin Ratio 1.4 (0.9-2); Albumin Level 2.9 gm/dl (3.4-5.0); Bilirubin,Total 0.6 mg/dl (0.2-1.0); Calcium 8.4 mg/dl (8.6-10.3); Creatinine Clr Calc Pharmacy 170.3 ml/min; Est GFR (African American) 149.5 ml/min; Globulin 2.1 gm/dl (2.5-4.0); Potassium 4.2 mmol/L (3.5-5.1)
[2023-03-19] MEDS ORDERED: bisacodyL 5 MG TABEC PO SCH (20:00)
[2023-03-20] MEDS ORDERED: bisacodyL 10 MG SUPP PR PRN
--- NOTE | 2023-03-20 06:07 | Obstetrical Progress Note ---
Date of Service <Sherrie BainDO alba - Last Filed: 03/20/23 06:42> March 20, 2023 Assessment & Plan <Sherrie BainajlizDO - Last Filed: 03/20/23 06:42> (1) care following vaginal delivery: Patient is PPD 2 s/p and doing well. - Eating well, voiding well, ambulating well - Vitals reviewed and within normal limits - Pain well controlled with analgesics - OOB, ambulation, diet progression as tolerated - Blood type: O+, GBS neg, rubella equivocal (MMR given) - Plan to discharge today - After discharge, 6 week follow up with Dr. Nuñez <Omayra Anna MD, FACOG - Last Filed: 03/20/23 08:58> (1) care following vaginal delivery: Subjective <Sherrie BainDO alba - Last Filed: 03/20/23 06:42> Patient is a 32 yo female who is now PPD #2 following spontaneous vaginal delivery at 40 0/7 weeks. Reports feeling well this morning. She endorses abdominal cramping and 3/10 pain well managed on analgesics. Voiding without issue. Tolerating regular meals overnight and able to ambulate some. She has passed gas. Persistent lochia with some improvement this morning. Currently bottle feeding. Review of Systems Denies fever, chills, sweats. Denies SOB, difficulty breathing, chest pain, palpitations, and chest pressure. Denies breast pain. Denies dysuria. Denies headache or changes in vision. Physical Exam <Sherrie BainDO alba - Last Filed: 03/20/23 06:42> General: Alert and oriented. No acute distress. CV: Regular rate and rhythm. No murmurs. Respiratory: CTA bilaterally. No rhonchi, wheezes, or crackles. No increased w ork of breathing. Abdomen: Positive bowel sounds. Soft, mildly tender, non distended. Uterus: Fundus firm and palpable 3 cm below the umbilicus. Lower extremities: Bilateral nonpitting LE edema. No deep calf pain. Results & Data <Sherrie MaldonadoConstantino Farfan DO - Last Filed: 03/20/23 06:42> Vital Signs (Past 12 Hours) Vital Signs Temp Pulse Resp BP Pulse Ox O2 Del Method 03/20/23 02:23 36.6 C 65 16 109/75 100 Room Air 03/19/23 20:29 36.5 C 78 16 122/82 100 Room Air <Omayra Anna MD, FACOG - Last Filed: 03/20/23 08:58> Co-Signing Physician Notes Resident Physician Supervision Note: I interviewed and examined the patient. Discussed with Dr. Farfan and agree with findings and plan as documented in the note. Any exceptions or clarifications are listed here: Doing well. Plts low normal, but appear to be stable. Plan d/c. Instructions given. Documented By: Omayra Anna MD, FACOG Resident Activity Tracking <Sherrie Farfan, - Last Filed: 03/20/23 06:42> Resident Involvement: Resident Care Provided Care Provided: OB Delivery
[2023-03-20] MEDS ORDERED: MEASLES, MUMPS & RUBELLA VIRUS VIAL SQ ONE (07:25)
[2023-03-20] MEDS: IBUPROFEN 600 MG TAB PO PRN (07:54)
[2023-03-20] MEDS: DOCUSATE SODIUM 100 MG CAP PO SCH (07:54)
[2023-03-20] MEDS: PRENATAL VITAMIN 1 TAB PO SCH (07:55)
[2023-03-20 09:15] LABS: Basophils # (auto) 0.04 K/uL (0-0.2); Basophils % (auto) 0.3 %; Eosinophils # (auto) 0.07 K/uL (0-0.50); Eosinophils % (auto) 0.6 %; Hematocrit (blood only) 35.9 % (37.0-47.0); Hemoglobin 11.7 g/dl (12.0-16.0); Immature Granulocytes # (auto) 0.04 K/uL (0.01-0.20); Immature Granulocytes % (auto) 0.3 %; Lymphocytes % (auto) 17.5 %; Mean Corpuscular Hemoglobin 29.5 pg (25.0-34.0); Mean Corpuscular Hgb Conc 32.6 g/dL (32.0-36.0); Mean Corpuscular Volume 90.7 fL (80.0-100.0); Mean Platelet Volume 12.2 fL (9.4-12.4); Monocytes # (auto) 0.54 K/uL (0.11-0.59); Monocytes % (auto) 4.5 %; Neutrophils # (auto) 9.22 K/uL (1.40-6.50); Neutrophils % (auto) 76.8 %; Platelet Count 105 K/uL (130-400); RDW Coefficient of Variation 14.5 % (11.5-14.5); RDW Standard Deviation 47.8 fL (36.4-46.3); Red Blood Count 3.96 M/uL (4.20-5.40); White Blood Count 12.01 K/ul (4.8-10.8)
== END 2023-03-20 10:30 | disposition home or self-care (01) | DRG 807 ==
LOC: 4S1 07:51 → 4E2 03-19 03:38